=== PATIENT | female | born 1960 | race Caucasian/White ===

== ENCOUNTER 2017-04-24 09:47 | Emergency (ER) | payer MEDICAID, OTHER ==
[2017-04-24] MEDS ORDERED: TDAP ADULT 0.5 ML INJ (BOOSTRIX) IM ONE (10:27)
[2017-04-24] MEDS ORDERED: ACETAMINOPHEN 325 MG TAB PO ONE (10:33)
[2017-04-24] MEDS ORDERED: AMOXICILLIN/CLAVULANATE POT 875/125 MG TAB PO ONE (10:49)
--- NOTE | 2017-04-24 10:52 | EDPHY ---
H & P Time Seen by Provider: 04/24/17 10:42 HPI/ROS: This patient reports a swelling and redness to her left hand from a cat bite. She explains that she has a rescue cat that gets a bit testy and became angry when she tried to bring it back in the house yesterday, biting her in the left thenar eminence more than the right thenar eminence. 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 She reports localize redness but no proximal erythema to the arm or other complaints. ROS: No fevers or chills. No other constitutional symptoms Integumentary: No drainage. Immunological: No proximal lymph node swelling GI: No nausea vomiting Cardiovascular: No lightheadedness 7 point ROS is otherwise negative. Past Medical/Surgical History: Breast cancer with lumpectomy with some lymph node removal on the left arm Prediabetic Smoking Status: Never smoked Physical Exam: Physical Exam Vital signs are normal. General: No acute distress Eyes: Pupils equal and react to light. Extraocular motions are intact. Lungs: No respiratory distress. Cardiac: Brisk capillary refill is intact throughout. Pulses are 2+ and symmetric in the affected extremity. Skin: Patient has small puncture wounds to the left thenar eminence more than the right with erythema to the left hand extending to the dorsum of the hand and minimal erythema of the right thenar eminence. No proximal streaking. No fluctuance. No foreign bodies in the wounds on direct examination. No purulent drainage. Neuro: Alert and oriented with no sensorimotor deficits in the affected extremities. Constitutional: Initial Vital Signs Temperature (C) 37.9 C 04/24/17 10:28 Heart Rate 90 04/24/17 10:28 Respiratory Rate 20 04/24/17 10:28 Blood Pressure 134/80 H 04/24/17 10:28 O2 Sat (%) 95 04/24/17 10:28 O2 Delivery Mode Room Air Allergies/Adverse Reactions: No Known Allergies Allergy (Unverified 04/24/17 10:28) Home Medications: Medication Instructions Recorded Amox Tr/K Clav (Augmentin) 500 mg PO TID #30 tab 04/24/17 [Augmentin 500/125 MG TAB (*)] Metformin HCl 04/24/17 MDM/Departure - MDM Medications Given: Discontinued Medications Acetaminophen (Tylenol) 975 mg PO EDNOW ONE Stop: 04/24/17 10:34 Last Admin: 04/24/17 10:40 Dose: 975 mg Amoxicillin/Clavulanate Potassium (Augmentin 875mg) 875 mg PO EDNOW ONE PRN Reason: Protocol Stop: 04/24/17 10:50 Last Admin: 04/24/17 10:58 Dose: 875 mg Diphtheria/Tetanus/Acell Pertussis (Boostrix) 0.5 ml IM .ONCE ONE Stop: 04/24/17 10:28 Last Admin: 04/24/17 10:57 Dose: 0.5 ml ED Course/Re-evaluation: Augmentin p. o. Tetanus immunization is updated While this patient has some potential mild immunocompromised with history of lymph node removal in the left axillary region post breast cancer, she does not have current evidence of proximal extension of the localized infection, evidence of systemic toxicity or sepsis. I think that she is a good candidate for oral antibiotics. 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 - Depart Disposition: Home, Routine, Self-Care Clinical Impression: Cat bite involving extremity Cellulitis Qualifiers: Site of cellulitis: extremity Site of cellulitis of extremity: upper extremity Laterality: unspecified laterality Qualified Code(s): L03.119 - Cellulitis of unspecified part of limb Condition: Good Instructions: Animal Bite (ED), Cellulitis (ED) Additional Instructions: Diagnoses: 1. Cat bites to both hands 2. Cellulitis Plan: Apply warm packs to affected areas to 3 times a day till symptoms resolved Clean wounds daily Augmentin antibiotic as prescribed Yogurt or probiotic while on this to prevent diarrhea Ibuprofen Tylenol for pain as needed Return for any significant worsening despite treatment plan. Prescriptions: Amox Tr/K Clav (Augmentin) [Augmentin 500/125 MG TAB (*)] 500 mg PO TID #30 tab Referrals: NONE *PRIMARY CARE P,. [Primary Care Provider] - As per Instructions
[2017-04-24 11:18] VITALS: BP 131/70; PULSE 88; RESP 16; TEMP 98.5; O2SAT 94
== END 2017-04-24 11:00 | disposition home or self-care (01) ==
LOC: CED 09:47
DX: S61.452A Open bite of left hand, initial encounter (principal); L03.114 Cellulitis of left upper limb; Z23 Encounter for immunization; Z85.3 Personal history of malignant neoplasm of breast; W55.01XA Bitten by cat, initial encounter; Y92.009 Unspecified place in unspecified non-institutional (private) residence as the place of occurrence of the external cause

== ENCOUNTER 2017-04-24 17:29 | Inpatient (IN) | payer MEDICAID ==
[2017-04-24] MEDS ORDERED: AMPICILLIN/SULBACTAM 3 GM in NS 100 ML IV ONE (17:53)
--- NOTE | 2017-04-24 18:03 | EDPHY ---
H & P Stated Complaint: Pt. 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 She was seen earlier today because of the bite yesterday and was noted to have mild cellulitis and she states she declined IV antibiotics at that time. She has had a single dose of oral antibiotics but notes that her hand pain and swelling have gotten significantly worse since earlier today. She denies any fever but feels achy. She denies any nausea or vomiting. She also complains of some pain in her right thenar eminence where she was also bitten. Tetanus was updated earlier today. REVIEW OF SYSTEMS: As in HPI, and all other systems reviewed and are negative Source: Patient - Personal History Current Tetanus Diphtheria and Acellular Pertussis (TDAP): Yes Tetanus Vaccine Date: 2016 - Medical/Surgical History Hx Asthma: No Hx Chronic Respiratory Disease: No Hx Diabetes: No Hx Cardiac Disease: No Hx Renal Disease: No Hx Cirrhosis: No Hx Alcoholism: No Hx HIV/AIDS: No Hx Splenectomy or Spleen Trauma: No Other PMH: LEFT BREAST CANCER=LUMPECTOMY. Surg-oophorectomy - Family History Significant Family History: No pertinent family hx - Social History Smoking Status: Never smoked - Physical Exam Exam: General Appearance: Alert and anxious and uncomfortable appearing Head: Normocephalic, atraumatic Eyes: Pupils equal and round no injection. Lungs: Bilateral clear to auscultation, no wheezes, rales, rhonchi Heart: Regular rate and rhythm, S1, S2, no murmurs, rubs, gallops appreciated Musculoskeletal: Neck is supple and nontender. Extremities: Left hand with marked erythema and swelling involving the entire dorsum of the hand extending to just above the wrist with lymphangitic streaking up to the elbow, diffusely tender, distal sensation intact, full range of motion of fingers but pain with extension, distal cap refill less than 2 seconds, distal sensation intact. Radial pulses are 2+ and equal bilaterally. Right hand has puncture wound on right femur eminence and dorsum of right thumb with mild tenderness but no appearance edema or swelling Skin: No rashes or lesions other than described as above. Neuro: Awake alert oriented x3, cranial nerves 2-12 intact, no pronator drift, normal gait Constitutional: Initial Vital Signs Temperature (C) 37.1 C 04/24/17 17:38 Heart Rate 109 H 04/24/17 17:38 Respiratory Rate 16 04/24/17 17:38 Blood Pressure 147/91 H 04/24/17 17:38 O2 Sat (%) 93 04/24/17 17:38 O2 Delivery Mode Room Air Allergies/Adverse Reactions: No Known Allergies Allergy (Verified 04/24/17 17:43) Home Medications: Medication Instructions Recorded Amox Tr/K Clav (Augmentin) 500 mg PO TID #30 tab 04/24/17 [Augmentin 500/125 MG TAB (*)] Metformin HCl 04/24/17 Medical Decision Making ED Course/Re-evaluation: 48-year-old woman presents with infected cat bite to left hand after being seen earlier today. I reviewed the records from earlier visit. Patient's infection is clearly progressing, although there is no evidence of sepsis at this time and she is hemodynamically stable. Patient is started on IV Unasyn. Patient has an elevated white blood cell count and elevated glucose. I discussed the case with Dr. Awad, hospitalist national park tour guide accepts the patient for admission to [facility]. We discussed the need for orthopedic consult. - Data Points Medications Given: Discontinued Medications Acetaminophen (Tylenol) 975 mg PO EDNOW ONE Stop: 04/24/17 18:30 Last Admin: 04/24/17 18:34 Dose: 975 mg Ampicillin Sodium/Sulbactam (Sodium 3 gm/ Sodium Chloride) 100 mls @ 200 mls/ hr IV EDNOW ONE PRN Reason: Protocol Stop: 04/24/17 18:22 Last Admin: 04/24/17 18:25 Dose: 100 mls Departure - Departure Disposition: [facility] Inpatient Acute Clinical Impression: Infected hand Cat bite of hand Qualifiers: Encounter type: subsequent encounter Laterality: left Qualified Code(s): S61.452D - Open bite of left hand, subsequent encounter Condition: Fair
[2017-04-24] MEDS ORDERED: NS 1,000 ML IV ONE (18:07)
[2017-04-24 18:14] LABS: % IMMATURE GRANULYOCYTES 0.3 % (0.0-1.1); ABSOLUTE IMMATURE GRANULOCYTES 0.04 10^3/uL (0.00-0.10); ADD DIFF? NO; ADD MORPH? NO; ADD SCAN? NO; ATYPICAL LYMPHOCYTE FLAG 10 (0-99); FRAGMENT RBC FLAG 0 (0-99); HEMATOCRIT 39.8 % (38.0-47.0); HEMOGLOBIN 13.9 g/dL (12.6-16.3); LEFT SHIFT FLG 20 (0-99); LIPEMIA HEMOLYSIS FLAG 90 (0-99); MEAN CELL HEMOGLOBIN 32.1 pg (27.9-34.1); MEAN CELL HEMOGLOBIN CONCENTR. 34.9 g/dL (32.4-36.7); MEAN CELL VOLUME 91.9 fL (81.5-99.8); MEAN PLATELET VOLUME 8.7 fL (8.7-11.7); PLATELET CLUMPS FLAG 0 (0-99); PLATELET COUNT 317 10^3/uL (150-400); RED BLOOD CELL COUNT 4.33 10^6/uL (4.18-5.33); RED CELL DISTRIBUTION WIDTH 11.9 % (11.5-15.2)
[2017-04-24 18:25] LABS: ANION GAP 15 mEq/L (8-16); CALCIUM 8.8 mg/dL (8.5-10.4); CARBON DIOXIDE 22 mEq/l (22-31); CHLORIDE 99 mEq/L (97-110); CREATININE 0.6 mg/dL (0.6-1.0); GLOMERULAR FILTRATION RATE > 60; GLUCOSE 248 mg/dL (70-100); POTASSIUM 4.1 mEq/L (3.5-5.2); SODIUM 136 mEq/L (134-144)
[2017-04-24] MEDS ORDERED: ACETAMINOPHEN 325 MG TAB PO ONE (18:29)
[2017-04-24] MEDS ORDERED: ZOLPIDEM TARTRATE 5 MG TAB PO PRN (21:53)
[2017-04-24] MEDS ORDERED: ONDANSETRON 4 MG/2 ML VIAL IVP PRN (21:53)
[2017-04-24] MEDS ORDERED: ACETAMINOPHEN 325 MG TAB PO PRN (21:53)
[2017-04-24] MEDS ORDERED: D50W 25 GM/50 ML SYR IVP PRN (21:55)
[2017-04-24] MEDS ORDERED: D10W 250 ML PRN HYPOGLYCEMIA IV (22:00)
--- NOTE | 2017-04-24 22:25 | GHP ---
[f rep st] HISTORY AND PHYSICAL DATE OF ADMISSION: 04/24/2017 CHIEF COMPLAINT: Left hand and arm pain and swelling after a cat bite. HISTORY OF PRESENT ILLNESS: This is a 56-year-old female with history of breast cancer status post left-sided lumpectomy and lymph node resection who presented to [facility] Emergency Department earlier this morning after she was bit by her cat yesterday. Last night, she was started on Augmentin. This morning, she had some lymphangitic streaking when she went to the urgent care and was advised to stay for IV antibiotics but left in order to go to work. After working today, she developed worsening streaking redness up her arm as well as worsening pain in her hand. She also developed some aches that were generalized but denied any fevers. She was given a tetanus shot prior to arriving at the hospital. PAST MEDICAL HISTORY: 1. Breast cancer, status post lumpectomy and lymph node dissection. 2. Total abdominal hysterectomy. 3. Metabolic syndrome. HOME MEDICATIONS: Metformin. ALLERGIES: No known drug allergies. SOCIAL HISTORY: She lives in [place] and works in the [employer] industry. She denies any alcohol, tobacco, or illicit drug use. FAMILY HISTORY: Reviewed and noncontributory. She does have family history of diabetes and strokes. REVIEW OF SYSTEMS: Comprehensive 10-point review of systems was done and is negative, except for as mentioned in the HPI. PHYSICAL EXAMINATION: VITAL SIGNS: Blood pressure 145/81, pulse 102, respiratory rate 16, O2 saturation 94% on room air. Temperature afebrile. GENERAL: No acute distress. HEART: S1, S2. LUNGS: Clear. No wheezes, rales , or rhonchi. ABDOMEN: Soft, nontender, nondistended. No guarding or rebound tenderness. Normoactive bowel sounds. EXTREMITIES: No clubbing or cyanosis. NEURO: Cranial nerves 2-12 grossly intact. No focal motor or sensory deficits. SKIN: There are 2 puncture wounds over the dorsal surface of her left thenar eminence. There is some induration without fluctuance. There is lymphangitic streaking extending up her arm to her axilla. DIAGNOSTICS: WBC is 12.4, hemoglobin 13.9, hematocrit 39.8, platelets 317, sodium 136, potassium 4.1, chloride 99, CO2 22, BUN 14, creatinine 0.6, glucose 248. ASSESSMENT/PLAN: This is a 56-year-old female who was bit by her own cat yesterday presenting with: 1. Left hand cat bite cellulitis. a. Plan: Patient will be admitted to the hospital where she will be continued on IV Unasyn. I will ask my covering colleagues to consult Hand Surgery in the morning. 2. History of metabolic syndrome, on metformin with hyperglycemia likely undiagnosed type 2 diabetes mellitus. a. Plan: We will obtain a hemoglobin A1c and order glucose monitoring while in the hospital. 3. Sepsis, given leukocytosis, tachycardia in the setting of cat bite without signs of severe sepsis or septic shock. a. Plan: Monitor for signs and symptoms of worsening infection. The patient requests to be a full code status. /[id number]/MODL and [id number]/MODL MTDD
[2017-04-25] MEDS: AMPICILLIN/SULBACTAM 3 GM in NS 100 ML IV SCH ×4 (00:01→18:07)
[2017-04-25] MEDS: HYDROCODONE/APAP 5/325 TAB PO PRN ×2 (00:59→04:36)
[2017-04-25 05:21] LABS: ANION GAP 12 mEq/L (8-16); CALCIUM 9.1 mg/dL (8.5-10.4); CARBON DIOXIDE 23 mEq/l (22-31); CHLORIDE 103 mEq/L (97-110); CREATININE 0.6 mg/dL (0.6-1.0); GLOMERULAR FILTRATION RATE > 60; GLUCOSE 206 mg/dL (70-100); SODIUM 138 mEq/L (134-144)
[2017-04-25] MEDS: metFORMIN HCL 500 MG TAB PO SCH ×2 (09:19→18:06)
--- NOTE | 2017-04-25 09:21 | HOSPPROG ---
Hospitalist Progress Note Assessment/Plan: Patient is a 56-year-old female who presented to the emergency room with left hand and arm pain and swelling after cat bite. I reviewed her care with the hand surgeon as well as Infectious Disease physician. They both will see her today. Today is my 1st encounter with the patient. Chart reviewed. *cat bite: MRI ordered to rule out abscess was recently treated with Augmentin this is been changed to Unasyn * sepsis with associated leukocytosis and tachycardia * metabolic syndrome on metformin will hold in the setting being NPO and may need further imaging * history of breast cancer status post lumpectomy and lymph node *Plan. Get an MRI. Appreciate Dr. Miranda and Dr. Cabrera seeing the patient. Subjective: Jenny is feeling fine except some tenderness to right hand area. Objective: Vital Signs Temp Pulse Resp BP Pulse Ox 37.2 C 85 16 131/68 H 93 04/25/17 07:53 04/25/17 07:53 04/25/17 07:53 04/25/17 07:53 04/25/17 07:53 Laboratory Results 04/24/17 18:00 04/25/17 04:16 04/24/17 04/25/17 04/26/17 05:59 05:59 05:59 Intake Total 510 Balance 510 - Physical Exam Constitutional: uncomfortable Eyes: PERRL Ears, Nose, Mouth, Throat: hearing normal Cardiovascular: regular rate and rhythym Respiratory: no respiratory distress Skin: warm, other (left hand with swelling/punctures that are small on dorsal area/redness extends up the forarm area/ edges marked) Neurologic: AAOx3 Psychiatric: interacting appropriately, not anxious ICD10 Worksheet Patient Problems: Problems Problem Status Onset Cat bite of hand Acute Infected hand Acute
[2017-04-25] MEDS: INSULIN LISPRO 100 UNIT/ML SC SCH ×3 (09:29→18:07)
[2017-04-25] MEDS: CITALOPRAM 20 MG TAB PO SCH (09:31)
[2017-04-25] MEDS ORDERED: NS 1,000 ML IV SCH (10:00)
[2017-04-25] MEDS: DOCUSATE SODIUM 100 MG CAP PO SCH ×2 (10:55→19:32)
[2017-04-25] MEDS: ACETAMINOPHEN 500 MG TAB PO PRN ×2 (11:03→19:24)
[2017-04-25 12:48] LABS: ALBUMIN 3.2 g/dL (3.5-5.0); BILIRUBIN-CONJUGATED 0.3 mg/dL (0.0-0.5); BILIRUBIN-UNCONJUGATED 0.7 mg/dL (0.0-1.1); TOTAL PROTEIN 6.2 g/dL (6.3-8.2)
--- NOTE | 2017-04-25 13:16 | GCON ---
[f rep st] CONSULTATION INFECTIOUS DISEASE CONSULTATION DATE OF CONSULTATION: 04/25/2017 REASON FOR CONSULTATION: Cat bite and subsequent lymphangitis. f HISTORY OF PRESENT ILLNESS: A 56-year-old woman with metabolic syndrome, and history of breast cancer with lumpectomy and lymph node dissection, left axillary region who presented to the hospital 2-times on 04/24 following a cat bite from her own vaccinated cat on 04/23/17. Her own cat bit her fairly deep on her left hand and possible forearm and subsequently she developed increasing swelling. 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 She subsequently returned with increasing swelling although patient reports that the swelling is improved overall today, but notes that there is a new area of erythema more medially on her arm that occurred within the hour. She describes significant pain in her left hand and arm that improves with elevation and APAP. She received a tetanus vaccination in the emergency room on 04/24. She denies any systemic symptoms such as fevers, chills, or night sweats. The patient is not known to have MRSA nor do any of her clients have MRSA that she knows of. PAST MEDICAL HISTORY AND PAST SURGICAL HISTORY: 1. Breast cancer, status post left lumpectomy and lymph node dissection. 2. Bilateral oophorectomy. 3. Metabolic syndrome. HOME MEDICATIONS: Metformin. HOSPITAL MEDICATIONS: She has been started on Unasyn 3 g IV q.6 hours. ALLERGIES: NKDA. SOCIAL HISTORY: No tobacco, alcohol, or illicit drugs. 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 She reports her son recently . FAMILY HISTORY: Positive for diabetes. REVIEW OF SYSTEMS: A complete 10-point Review of Systems was performed and is negative except as mentioned in the HPI. PHYSICAL EXAMINATION: VITAL SIGNS: T-max is 37.2, blood pressure 131/68, heart rate initially 110 and currently 85, respiratory rate 16, saturation 93% on room air. GENERAL: This is a nontoxic-appearing woman sitting up in bed. No acute distress with fluent speech. HEENT: Pupils are reactive bilaterally. Oropharynx good dentition. Moist mucous membranes. NECK: Supple. No lymphadenopathy. CARDIOVASCULAR: Regular rate and rhythm. No murmurs. CHEST : Clear to auscultation bilaterally. ABDOMEN: Soft, nontender. Bowel sounds are present. EXTREMITIES: She had marked swelling of her left hand. Joint involvement was difficult within the hand due to degree of swelling, but her wrist range of motion was intact. The patient had significant tenderness over the dorsum of her hand without crepitus or fluctuance. The puncture site over the first metacarpal and forearm was noted and no purulence was expressed. She also had tracking spread on the anterior surface of her arm as well as the medial surface of her arm clearly along her lymph vessels that have been marked. Medial arm lymphangitis appeared immediately before my exam. NEUROLOGIC: She was alert and oriented x4. Moving all 4 extremities equally. No cranial nerve abnormalities were detected. PSY: tearful LABORATORY: White count 12.4, hematocrit 39, platelets of 317, creatinine 0.6, 78% neutrophils. Glucose was 248 on admission. LFTs are pending. Hemoglobin A1c was pending. Blood cultures were not obtained. Imaging is pending at time of dictation. ASSESSMENT: This is a 56-year-old woman with underlying metabolic syndrome versus diabetes as well as altered lymph flow of her left upper extremity due to lymph node dissection status post cat bite with subsequent clinical appearance of tendinopathy and lymphangitis complication with diabetes as well as lymph node dissection were likely contributing factors. Reviewed the reasons for continued progression of her erythema: (a) Only received a couple doses of antibiotics and this may be natural history of disease despite adequate coverage (b) Un-drained abscess/purulent tenosynovitis , and need for debridement or (c) gap in coverage such as MRSA. With additional imaging we will have be able to sort out the specific cause of new areas of erythema on her arm currently. PLAN: 1. 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 2. Agree with MRI of left hand 3. If needs surgery obtain cultures in the operating room, if possible. 4. Defer blood cultures as patient is currently hemodynamically stable and has already received antibiotics. Thank you for this consultation. We will continue to see on a daily basis. /[id number]/MODL MTDD
[2017-04-25] MEDS: VANCOMYCIN 1.25 GM in D5W 250 ML IV SCH (14:13)
[2017-04-26] MEDS: AMPICILLIN/SULBACTAM 3 GM in NS 100 ML IV SCH ×4 (00:45→18:34)
[2017-04-26 00:49] LABS: HEMOGLOBIN A1C 11.2 % (4.0-6.0)
[2017-04-26] MEDS: VANCOMYCIN 1.25 GM in D5W 250 ML IV SCH ×2 (01:44→14:16)
[2017-04-26] MEDS: HYDROCODONE/APAP 5/325 TAB PO PRN (01:47)
[2017-04-26] MEDS: metFORMIN HCL 500 MG TAB PO SCH (08:35)
[2017-04-26] MEDS: INSULIN LISPRO 100 UNIT/ML SC SCH ×3 (08:35→18:36)
[2017-04-26] MEDS: DOCUSATE SODIUM 100 MG CAP PO SCH ×2 (08:36→19:44)
[2017-04-26] MEDS: CITALOPRAM 20 MG TAB PO SCH (08:36)
--- NOTE | 2017-04-26 10:16 | PCMIDPN ---
Assessment/Plan: Assessment/Plan: * Left upper extremity cellulitis after cat bite with prior axillary lymph node dissection: Clinically improved today with resolution of lymphangitis. Persistent pain and swelling and hand and wrist with decreased range of motion but overall improved versus prior. Likely component of tenosynovitis present. MRI does not show drainable focus. 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 If continued improvement tomorrow, likely can discontinue vancomycin. 04/26/17 10:13 04/26/17 10:15 Subjective: Patient feels significantly improved with resolution of red streaks up the arm. Less pain and swelling in hand and wrist with improving range of motion. Objective: Vital Signs Temp Pulse Resp BP Pulse Ox 37.0 C 83 12 130/83 H 93 04/26/17 08:00 04/26/17 08:00 04/26/17 08:00 04/26/17 08:00 04/26/17 08:00 Laboratory Results 04/24/17 18:00 04/25/17 04:16 04/25/17 04/26/17 04/27/17 05:59 05:59 05:59 Intake Total 510 1110 Balance 510 1110 Vancomycin # 2 Unasyn # 2 MRI of hand with cellulitis/myositis without abscess - Physical Exam General Appearance: alert, no apparent distress Respiratory: lungs clear Cardiac/Chest: regular rate, rhythm, No systolic murmur Extremities: inflammation (Left upper extremity with edema, faint erythema and tenderness over dorsal surface of hand and wrist; pain to palpation of wrist but no irritability with range of motion; no focal fluctuance; decreased flexion of digits throughout) Lymphatic: other (Left upper extremity lymphangitis were demarcated resolved) ICD10 Worksheet Patient Problems: Problems Problem Status Onset Cat bite of hand Acute Infected hand Acute
--- NOTE | 2017-04-26 12:20 | HOSPPROG ---
Hospitalist Progress Note Assessment/Plan: Patient is a 56-year-old female who presented to the emergency room with left hand and arm pain and swelling after cat bite. I reviewed her care with the hand surgeon as well as Infectious Disease physician. They both will see her today. *cat bite/left hand cellulitis: unasyn +vancomycin appreciate ID and hand surgeon seeing (I spoke with Dr Cabrera yesterday who didn't recommend any intervention) much improved (lymphangitis resolving) * sepsis with associated leukocytosis and tachycardia much improved * DM2/new dx (A1c is 11.2) metformin bid/ will change to metformin sr daily changed to ADA diet/ asked [employer] office instructor to see sliding scale recommending exercise, weight loss and close f/u w her PCP she would like to hold off on Januvia or other treatment until she can try the above * history of breast cancer status post lumpectomy and lymph node *Plan. continue IV abx, hopefully, can be dc soon Subjective: Jenny is feeling much better today/ no complaints. Objective: Vital Signs Temp Pulse Resp BP Pulse Ox 37.0 C 83 12 130/83 H 93 04/26/17 08:00 04/26/17 08:00 04/26/17 08:00 04/26/17 08:00 04/26/17 08:00 Laboratory Results 04/24/17 18:00 04/25/17 04:16 04/25/17 04/26/17 04/27/17 05:59 05:59 05:59 Intake Total 510 1110 Balance 510 1110 - Physical Exam Constitutional: no apparent distress, appears nourished, not in pain Eyes: PERRL Ears, Nose, Mouth, Throat: hearing normal Cardiovascular: regular rate and rhythym Respiratory: no respiratory distress Gastrointestinal: normoactive bowel sounds Skin: other (left hand with swelling, but streak up arm has resolved, has some redness and tenderness under left axilla area) Musculoskeletal: full muscle strength, no muscle tenderness Neurologic: AAOx3 Psychiatric: interacting appropriately ICD10 Worksheet Patient Problems: Problems Problem Status Onset Cat bite of hand Acute Infected hand Acute
[2017-04-26] MEDS: ACETAMINOPHEN 500 MG TAB PO PRN (14:25)
[2017-04-26] MEDS ORDERED: metFORMIN SR 750 MG TAB.SR PO SCH (17:00)
[2017-04-27] MEDS: AMPICILLIN/SULBACTAM 3 GM in NS 100 ML IV SCH ×5 (00:10→23:36)
[2017-04-27] MEDS: ACETAMINOPHEN 500 MG TAB PO PRN ×3 (00:29→23:38)
[2017-04-27] MEDS: VANCOMYCIN 1.25 GM in D5W 250 ML IV SCH ×2 (01:04→12:55)
[2017-04-27 06:25] LABS: % IMMATURE GRANULYOCYTES 0.5 % (0.0-1.1); ABSOLUTE IMMATURE GRANULOCYTES 0.03 10^3/uL (0.00-0.10); ADD DIFF? NO; ADD MORPH? NO; ADD SCAN? NO; ATYPICAL LYMPHOCYTE FLAG 10 (0-99); FRAGMENT RBC FLAG 0 (0-99); HEMATOCRIT 37.9 % (38.0-47.0); HEMOGLOBIN 13.1 g/dL (12.6-16.3); LEFT SHIFT FLG 20 (0-99); LIPEMIA HEMOLYSIS FLAG 90 (0-99); MEAN CELL HEMOGLOBIN 32.3 pg (27.9-34.1); MEAN CELL HEMOGLOBIN CONCENTR. 34.6 g/dL (32.4-36.7); MEAN CELL VOLUME 93.3 fL (81.5-99.8); MEAN PLATELET VOLUME 9.1 fL (8.7-11.7); PLATELET CLUMPS FLAG 20 (0-99); PLATELET COUNT 308 10^3/uL (150-400); RED BLOOD CELL COUNT 4.06 10^6/uL (4.18-5.33); RED CELL DISTRIBUTION WIDTH 11.9 % (11.5-15.2)
[2017-04-27 06:45] LABS: ANION GAP 10 mEq/L (8-16); CALCIUM 9.8 mg/dL (8.5-10.4); CARBON DIOXIDE 21 mEq/l (22-31); CHLORIDE 107 mEq/L (97-110); CREATININE 0.7 mg/dL (0.6-1.0); GLOMERULAR FILTRATION RATE > 60; GLUCOSE 194 mg/dL (70-100); POTASSIUM 4.3 mEq/L (3.5-5.2); SODIUM 138 mEq/L (134-144)
[2017-04-27] MEDS: DOCUSATE SODIUM 100 MG CAP PO SCH ×2 (08:22→23:47)
[2017-04-27] MEDS: CITALOPRAM 20 MG TAB PO SCH (08:22)
[2017-04-27] MEDS: INSULIN LISPRO 100 UNIT/ML SC SCH ×3 (08:48→18:18)
--- NOTE | 2017-04-27 12:04 | PCMIDPN ---
Assessment/Plan: Assessment/Plan: 1. LUE cellulitis after cat bite: - Erythema/swelling improving but still present. -On vanco, unasyn. Will stop vanco today. Continue IV antbx at least one more day. - If continues to improve then may consider oral antbx tomorrow. -Discussed importance of UE elevation today. -MRI reviewed. - wbc improved. meds unasyn 3g q6 vanco. Subjective: AFebrile. swelling is improving but still prominent involving wrist and hand, forearm. less pain. more flexibilitiy and range of motion at wrist but not fully able to flex/extend. kareem sob. denies diarrhea. denies numbness/tingling of fingertips. Objective: Vital Signs Temp Pulse Resp BP Pulse Ox 37.1 C 79 16 129/76 H 95 04/27/17 07:17 04/27/17 07:17 04/27/17 07:17 04/27/17 07:17 04/27/17 07:17 Laboratory Results 04/27/17 05:51 04/27/17 05:51 04/26/17 04/27/17 04/28/17 05:59 05:59 05:59 Intake Total 1110 1915 480 Balance 1110 1915 480 - Physical Exam General Appearance: alert, no apparent distress Respiratory: lungs clear Cardiac/Chest: regular rate, rhythm Extremities: swelling, other (peripheral pulses well appreciated. sensation intact. warmth appreaciated on hand/forearm. lymphangitis resolved. ) Abdomen: normal bowel sounds, non-tender, soft, No distended Skin: No erythema (hadn/distal forearm. swelling ) ICD10 Worksheet Patient Problems: Problems Problem Status Onset Cat bite of hand Acute Infected hand Acute
--- NOTE | 2017-04-27 13:57 | HOSPPROG ---
Hospitalist Progress Note Assessment/Plan: Patient is a 56-year-old female who presented to the emergency room with left hand and arm pain and swelling after cat bite. I reviewed her care with the Infectious Disease physician. First encounter, chart reviewed. *cat bite/left hand cellulitis: unasyn only, vancomycin DC'd appreciate ID much improved (lymphangitis resolved) still some swelling * sepsis with associated leukocytosis and tachycardia resolved * DM2/new dx (A1c is 11.2) metformin bid/ was changed to metformin sr daily however pt wants to remain on previous dose will change back ADA diet/blending coordinator to see sliding scale recommending exercise, weight loss and close f/u w her PCP she would like to hold off on Januvia or other treatment until she can try the above * history of breast cancer status post lumpectomy and lymph node *Plan. continue IV abx, hopefully, can be dc soon when ok with ID Subjective: Feeling better. No pain. Less swelling. Objective: Vital Signs Temp Pulse Resp BP Pulse Ox 37.1 C 79 16 129/76 H 95 04/27/17 07:17 04/27/17 07:17 04/27/17 07:17 04/27/17 07:17 04/27/17 07:17 Laboratory Results 04/27/17 05:51 04/27/17 05:51 04/26/17 04/27/17 04/28/17 05:59 05:59 05:59 Intake Total 1110 1915 480 Balance 1110 1915 480 - Physical Exam Constitutional: appears nourished, not in pain, obese Eyes: PERRL, anicteric sclera, EOMI Ears, Nose, Mouth, Throat: moist mucous membranes, hearing normal, ears appear normal Cardiovascular: regular rate and rhythym, No JVD, No edema Respiratory: no respiratory distress, no rales or rhonchi, reduced air movement Gastrointestinal: normoactive bowel sounds, soft, non-tender abdomen, No ascites Skin: warm, normal color, No mottled Musculoskeletal: full muscle strength, joint tenderness, pain with ROM Neurologic: AAOx3 Psychiatric: interacting appropriately, not anxious, not encephalopathic, thought process linear ICD10 Worksheet Patient Problems: Problems Problem Status Onset Cat bite of hand Acute Infected hand Acute
[2017-04-27] MEDS: metFORMIN HCL 500 MG TAB PO SCH (18:17)
[2017-04-28] MEDS: AMPICILLIN/SULBACTAM 3 GM in NS 100 ML IV SCH (05:51)
[2017-04-28 06:03] LABS: ALANINE AMINOTRANSFERASE 55 IU/L (9-52); ALBUMIN 3.7 g/dL (3.5-5.0); ALKALINE PHOSPHATASE 107 IU/L (38-126); ANION GAP 16 mEq/L (8-16); ASPARTATE AMINOTRANSFERASE 32 IU/L (14-46); BILIRUBIN,TOTAL 0.7 mg/dL (0.1-1.4); CALCIUM 9.8 mg/dL (8.5-10.4); CARBON DIOXIDE 20 mEq/l (22-31); CHLORIDE 105 mEq/L (97-110); CREATININE 0.7 mg/dL (0.6-1.0); GLOMERULAR FILTRATION RATE > 60; GLUCOSE 206 mg/dL (70-100); POTASSIUM 4.4 mEq/L (3.5-5.2); SODIUM 141 mEq/L (134-144); TOTAL PROTEIN 6.9 g/dL (6.3-8.2)
[2017-04-28] MEDS: DOCUSATE SODIUM 100 MG CAP PO SCH (08:50)
[2017-04-28] MEDS: CITALOPRAM 20 MG TAB PO SCH (08:50)
[2017-04-28] MEDS: metFORMIN HCL 500 MG TAB PO SCH (08:50)
[2017-04-28] MEDS: INSULIN LISPRO 100 UNIT/ML SC SCH ×2 (08:51→12:15)
[2017-04-28 09:15] VITALS: BP 143/77; PULSE 76; RESP 14; TEMP 98.1; O2SAT 95
--- NOTE | 2017-04-28 10:06 | PCMIDPN ---
Assessment/Plan: Assessment/Plan: * Left upper extremity cellulitis after cat bite with prior axillary lymph node dissection: Marked clinical improvement with antibiotic therapy. Cellulitis and lymphangitis has resolved. Range of motion of digits markedly improved. Residual tenderness over wrist. Will go of single dose of ertapenem prior to discharge today, then plan additional 7 days of Augmentin 875 mg twice daily to complete therapy. Follow-up in my office next week as outlined in discharge plan. 04/28/17 10:03 Subjective: Patient feels significantly improved with improved range of motion of digits. Red streaking along arm has resolved. Objective: Vital Signs Temp Pulse Resp BP Pulse Ox 36.7 C 76 14 143/77 H 95 04/28/17 08:00 04/28/17 08:00 04/28/17 08:00 04/28/17 08:00 04/28/17 08:00 Laboratory Results 04/27/17 05:51 04/28/17 04:30 04/27/17 04/28/17 04/29/17 05:59 05:59 05:59 Intake Total 1914 1979 Balance 191 1980 Unasyn # 4 - Physical Exam General Appearance: alert, no apparent distress EENT: pharynx normal, No scleral icterus Respiratory: lungs clear, No respiratory distress Cardiac/Chest: regular rate, rhythm Extremities: inflammation (Cellulitis and lymphangitis fully resolved; mild residual dorsal edema and tenderness over wrist; cannot fully flex digits but marked improvement, no palpable fluctuance) ICD10 Worksheet Patient Problems: Problems Problem Status Onset Cat bite of hand Acute Infected hand Acute
[2017-04-28] MEDS ORDERED: ERTAPENEM 1 GM in NS 100 ML IV SCH (12:00)
--- NOTE | 2017-04-29 01:00 | GDS ---
[f rep st] DISCHARGE SUMMARY DISCHARGE DIAGNOSES: 1. Cat bite cellulitis of the left upper extremity. 2. Sepsis. 3. Diabetes mellitus type 2. 4. History of breast cancer. CONSULTATIONS: Infectious Disease. STUDIES AND PROCEDURES DONE: Upper extremity MRI. PHYSICAL EXAMINATION: GENERAL: The patient is alert. VITAL SIGNS: Afebrile at 36.7, pulse is 76, respiratory rate is 14, blood pressure is 143/77. She is saturating 95% on room air. I have seen and evaluated the patient on the day of discharge. HOSPITAL COURSE: The patient is a 56-year-old female, who presents emergency room with complaints of left arm pain and swelling secondary to a cat bite. She was evaluated and diagnosed with: 1. Cat bite cellulitis during this hospitalization. She was started on vancomycin, as well as Unasyn. An Infectious Disease consultation was obtained. The patient was then transitioned to Unasyn only. She has responded well to antibiotic therapy and will receive a dose of Invanz prior to disposition. She did have lymphangitis, which has resolved prior to discharge, as well as decrease in her swelling. I reviewed her disposition with Dr. Oli Hackett, who is in agreement with her discharge plan. A prescription for Augmentin 875 mg p.o. b.i.d. has been provided for the patient at the time of disposition. She will continue this for another 7 days in the outpatient setting. 2. Diabetes mellitus type 2. The patient's hemoglobin A1c is 11.2. I have discussed with her and educated her with regard to her diabetic medications and regimen. She does understand the importance of this and is willing to follow up at [facility]. She does not wish to have any of her previously prescribed home medications adjusted at this time and will defer to her primary care follow -up appointment. 3. Sepsis. This has resolved and was secondary to the patient's acute infectious process. DISPOSITION: The patient will be discharged home independently. There are no pending studies. DISCHARGE MEDICATIONS: Please refer to the EMR form. I have provided the patient a prescription for Augmentin 875 b.i.d. I have not discontinued or adjusted her other previously prescribed home medications to the best of my knowledge. FOLLOWUP: She will follow up at [facility] in [place] on 05/06/2017. She will also follow up with Dr. Oli Hackett of Infectious Diseases at the [facility] on 05/04/2017 at 10:30 in the a.m. I spent greater than 35 minutes in the care, coordination, and management of this patient's disposition. /[id number]/MODL MTDD
== END 2017-04-28 15:20 | disposition home or self-care (01) | DRG 872 ==
LOC: CED 17:29 → CEDHOLD 17:58 → F3E 20:11
PROVIDERS: ADMIT Family Medicine; ATTEND Internal Medicine
DX: A41.9 Sepsis, unspecified organism (principal); L03.114 Cellulitis of left upper limb; S61.451A Open bite of right hand, initial encounter; W55.01XA Bitten by cat, initial encounter; E11.9 Type 2 diabetes mellitus without complications; E88.81 Metabolic syndrome and other insulin resistance; Z85.3 Personal history of malignant neoplasm of breast; Z79.84 Long term (current) use of oral hypoglycemic drugs
CPT/HCPCS: 80048-PO; 85025-PO; 96365; 97165-GO; J0295; J1335; J1815; J3370